=== PATIENT | female | born 1965 | race Caucasian/White ===

== ENCOUNTER 2022-02-09 15:30 | Emergency (ER) | payer MEDICARE, OTHER ==
[2022-02-09 16:03] LABS: HEMOGLOBIN 10.5 gm/dl (12.3-15.3); RED BLOOD COUNT 3.53 M/UL (4.00-5.10); WHITE BLOOD COUNT 12.1 K/UL (4.5-11.0)
[2022-02-09 16:43] LABS: BUN/CREATININE RATIO 19 (0-10)
[2022-02-09] MEDS ORDERED: PEPCID40 MG PO (18:44)
[2022-02-09] MEDS ORDERED: VISTARIL 25 MG25 MG PO (18:44)
== END 2022-02-09 21:00 | disposition home or self-care (01) ==
LOC: ER1 15:30
PROVIDERS: Preventive Medicine Occupational Medicine
DX: K29.70 Gastritis, unspecified, without bleeding (principal); F41.9 Anxiety disorder, unspecified; I10 Essential (primary) hypertension; I25.10 Atherosclerotic heart disease of native coronary artery without angina pectoris; J44.9 Chronic obstructive pulmonary disease, unspecified; E11.9 Type 2 diabetes mellitus without complications
CPT/HCPCS: 71045; 80053; 81001; 83690; 85025; 85652; 86140; 87086; 93005; 96374; 96375; 99284; J2405; Q0177

== ENCOUNTER 2022-03-10 18:04 | Emergency (ER) | payer MEDICARE, OTHER ==
[~2022-03-10 18:04] MED LIST: PEPCID40 MG PO; VISTARIL 25 MG25 MG PO
[2022-03-10 19:10] LABS: HEMOGLOBIN 12.3 gm/dl (12.3-15.3); RED BLOOD COUNT 4.24 M/UL (4.00-5.10); WHITE BLOOD COUNT 13.2 K/UL (4.5-11.0)
[2022-03-10 19:30] LABS: BUN/CREATININE RATIO 16 (0-10)
[2022-03-11] MEDS ORDERED: ZOFRAN 4 MG TAB4 MG PO (03:16)
== END 2022-03-11 04:55 | disposition home or self-care (01) ==
LOC: ER1 18:04
DX: A08.4 Viral intestinal infection, unspecified (principal); E11.9 Type 2 diabetes mellitus without complications; E78.5 Hyperlipidemia, unspecified; I10 Essential (primary) hypertension; J44.9 Chronic obstructive pulmonary disease, unspecified; Z90.89 Acquired absence of other organs; Z90.49 Acquired absence of other specified parts of digestive tract; Z87.891 Personal history of nicotine dependence; Z99.81 Dependence on supplemental oxygen
CPT/HCPCS: 71045; 80053; 81001; 82550; 82553; 83690; 84484; 85025; 93005; 94664; 96374; 96375; 96376; 99285; J1642; J2405; J2765; Q9967